=== PATIENT | male | born 1955 | race Asian ===

== ENCOUNTER 2017-08-12 08:28 | Emergency (ER) | payer OTHER ==
[~2017-08-12] VITALS: Ht 180.3 cm; Wt 81.6 kg
[~2017-08-12 08:28] MED LIST: ASPIR-LOW81 MG PO; HYDR25TA60 PO; IBUPROFEN800 MG PO; KLOR-CON M2020 MEQ OR; METOPROLOL50 MG PO; NORVIR100 MG OR; RANITIDINE150 MG OR; REYATAZ300 MG OR; TRAM50TA PO; TRUVADA PO
[2017-08-12 08:41] VITALS: TEMP 97.2
[2017-08-12 10:00] LABS: PLATELET COUNT 169 K/uL (142-355)
[2017-08-12 10:20] LABS: POTASSIUM 3.7 mmol/L (3.6-5.2)
[2017-08-12 10:57] VITALS: BP 126/70
== END 2017-08-12 11:00 | disposition home or self-care (01) ==
LOC: ED 08:28
PROVIDERS: Family Medicine
DX: S00.03XA Contusion of scalp, initial encounter (principal); W01.198A Fall on same level from slipping, tripping and stumbling with subsequent striking against other object, initial encounter; Y92.89 Other specified places as the place of occurrence of the external cause
CPT/HCPCS: 36415; 80048; 85027; 96374; 99284; J1170

== ENCOUNTER 2017-10-27 10:43 | Outpatient (CLI) | payer OTHER | END 2017-10-27 18:19 | disposition home or self-care (01) | LOC: RAD 10:43 | DX: M54.5 Low back pain (principal) ==

== ENCOUNTER 2022-02-11 07:43 | Outpatient (CLI) | payer OTHER ==
[2022-02-11 08:21] LABS: PLATELET COUNT 137 K/uL (142-355)
[2022-02-11 08:49] LABS: POTASSIUM 3.9 mmol/L (3.6-5.2)
== END 2022-02-11 18:46 | disposition home or self-care (01) ==
LOC: LABW 07:43
PROVIDERS: ATTEND Nurse Practitioner Family
DX: D64.89 Other specified anemias (principal); N40.0 Benign prostatic hyperplasia without lower urinary tract symptoms; R97.20 Elevated prostate specific antigen [PSA]; K21.9 Gastro-esophageal reflux disease without esophagitis; B20 Human immunodeficiency virus [HIV] disease; I10 Essential (primary) hypertension; E55.9 Vitamin D deficiency, unspecified; Z79.899 Other long term (current) drug therapy
CPT/HCPCS: 36415; 80053; 80061; 81002; 82043; 82306; 82570; 83036; 84153; 84436; 84443; 85027

== ENCOUNTER 2023-02-11 17:42 | Emergency (ER) | payer OTHER ==
[~2023-02-11] VITALS: Ht 180.3 cm; Wt 127.0 kg
[2023-02-11 17:55] VITALS: TEMP 99.9
[2023-02-11 18:40] VITALS: BP 143/83
== END 2023-02-11 20:30 | disposition home or self-care (01) ==
LOC: ED 17:42
DX: M25.512 Pain in left shoulder (principal); M19.012 Primary osteoarthritis, left shoulder
CPT/HCPCS: 96372; 99283; J1885; J2360